=== PATIENT | male | born 1975 | race Caucasian/White ===

== ENCOUNTER 2021-05-25 01:20 | Inpatient (IN) | payer MEDICAID, SELFPAY ==
[~2021-05-25] VITALS: Ht 160 cm; Wt 68.5 kg
[2021-05-25 01:20] VITALS: BP_SYST 135
[~2021-05-25 01:20] MED LIST: ALBU2.5V7 INH; ALPR0.5T PO; EPIN0.3P3 IM; ESCI20TA PO; FAMO-132 PO; FLUT1BLS10; MONT-40 PO; PRED20TA PO; PROAIR
--- NOTE | 2021-05-25 01:20 | NUR ---
Patient to ER bed 3 to gown for evaluation. Side rails up.
--- NOTE | 2021-05-25 01:25 | NUR ---
ER Dr. Lopez at bedside examining patient.
[2021-05-25] MEDS ORDERED: ASPIRIN 325 MG TABLET PO ONE (01:30)
[2021-05-25] MEDS ORDERED: NITROGLYCERIN 0.4 MG TAB.SUBL SL ONE (01:30)
[2021-05-25] MEDS ORDERED: ASPIRIN 325 MG TABLET ONE (01:34)
--- NOTE | 2021-05-25 01:40 | NUR ---
PT RARIVED IN THE ER WITH COMPLAINTS OF CP. PT WAS PLAYING VIDEO GAMES AT AROUND 0015 TODAY AND STARTED EXPERIENCEING CP 12/17 RADIATING TO LEFT ARM AND SHUODLER AREA. PT WOKE UPFAMILY AND WAS BROUGHT HERE, STATES HE WAS HERE ABOUT A 1 WEEK AGO FOR A TIA AND WAS RECENTLY DISCHARGED. A&OX4.
--- NOTE | 2021-05-25 01:43 | NUR ---
XR AT BEDSIDE
--- NOTE | 2021-05-25 01:46 | NUR ---
PT GIVEN 2ND DOSE OF NITROGLYCERIN DUE TO CP STILL BEING 12/17
--- NOTE | 2021-05-25 02:14 | NUR ---
# 22 gauge angiocath placed to L HAND. Use of asceptic technique. Opsite placed over site. Blood return noted. Blood for lab drawn from site. Flushed with 10 cc of normal saline. No evidence of infiltration noted. Patient tolerated well.
[2021-05-25] MEDS ORDERED: IBUPROFEN 800 MG TABLET PO ONE (02:15)
[2021-05-25] MEDS ORDERED: PANTOPRAZOLE SODIUM 40 MG TAB PO ONE (02:15)
[2021-05-25 02:33] LABS: BASOPHILS # (AUTO) 0.1 K/uL (0.0-0.2); BASOPHILS % (AUTO) 0.4 % (0.0-2.0); EOSINOPHILS # (AUTO) 0.1 K/uL (0.0-0.4); EOSINOPHILS % (AUTO) 0.9 % (0.0-4.0); HEMATOCRIT 39.6 % (36-54); HEMOGLOBIN 13.3 g/dL (14.0-18.0); LYMPHOCYTES # (AUTO) 3.1 K/uL (1.0-5.5); LYMPHOCYTES % (AUTO) 22.9 % (20.5-51.5); MEAN CORPUSCULAR HEMOGLOBIN 30 pg (27-31); MEAN CORPUSCULAR HGB CONC 34 % (32-36); MEAN CORPUSCULAR VOLUME 89 fL (79.0-98.0); MONOCYTES # (AUTO) 1.2 K/uL (0.0-1.0); MONOCYTES % (AUTO) 9.1 % (1.7-9.3); NEUTROPHILS % (AUTO) 66.7 % (40.0-70.0); PLATELET COUNT (AUTO) 289 K/uL (130-430); RED BLOOD CELL COUNT(AUTO) 4.46 MIL/uL (4.2-6.2); RED CELL DISTRIBUTION WIDTH 13.8 % (9.0-15.0); WHITE BLOOD COUNT (AUTO) 13.5 K/uL (4.8-10.8)
[2021-05-25 03:15] LABS: ANION GAP 8 (5-15); CALCIUM 8.4 mg/dL (8.4-11.0); CHLORIDE 100 mmol/L (98-107); CREATININE 0.85 mg/dL (0.55-1.30); GLUCOSE 128 mg/dL (70-99); POTASSIUM 3.4 mmol/L (3.5-5.1); SODIUM SERUM 135 mmol/L (136-145); UREA NITROGEN, BLOOD 10 mg/dL (8-21)
[2021-05-25 03:24] LABS: ALANINE AMINOTRANSFERASE 44 U/L (12-78); ALBUMIN 3.4 g/dL (3.4-4.8); ASPARTATE AMINOTRANSFERASE 16 U/L (10-37); TOTAL BILIRUBIN 0.2 mg/dL (0.0-1.0)
[2021-05-25 03:29] LABS: GFR AFRICAN AMERICAN 127 mL/min (>90)
--- NOTE | 2021-05-25 03:40 | NUR ---
pt resting in bed awaiting update on transfer
[2021-05-25 04:33] LABS: BENZODIAZEPINE, URINE POSITIVE (NEG <=150); CANNABINOID, URINE POSITIVE (NEG <=50); METHAMPHETAMINES SCREEN,URINE POSITIVE (NEG <=500); URINE AMPHETAMINE POSITIVE (NEG <=500)
[2021-05-25 04:34] LABS: BARBITURATE, URINE NEGATIVE (NEG <=200); COCAINE, URINE NEGATIVE (NEG <=150); OPIATE, URINE NEGATIVE (NEG <=100); PHENCYCLIDINE SCREEN,URINE NEGATIVE (NEG <=25); UR TRICYCLIC ANTIDEPRESSANTS NEGATIVE (NEG <=300); URINE METHADONE NEGATIVE (NEG <=200); URINE OXYCODONE SCREEN NEGATIVE (NEG <=100); URINE PROPOXYPHENE SCREEN NEGATIVE (NEG <=300)
[2021-05-25 04:44] LABS: ALCOHOL, BLOOD < 3 mg/dL (<10)
[2021-05-25] MEDS ORDERED: ACETAMINOPHEN 500 MG TABLET ONE (05:13)
[2021-05-25] MEDS ORDERED: ACETAMINOPHEN 500 MG TABLET PO ONE (05:15)
[2021-05-25] MEDS ORDERED: DIPHENHYDRAMINE INJ 50 MG/ML VIAL IVP ONE (05:15)
--- NOTE | 2021-05-25 05:30 | NUR ---
Patient will be admitted to care of DR. HINOJOSA. Admitted to TELE unit. Will go to room TBD. Belongings list completed. Complete and up to date summary report printed. SBAR report to be given at bedside with opportunity for questions.
--- NOTE | 2021-05-25 05:42 | NUR ---
PT IS FULL CODE
[2021-05-25] MEDS ORDERED: ASA81 PO (05:46)
--- NOTE | 2021-05-25 05:57 | NUR ---
Medication reconciliation completed with information provided by PATIENT. Any prior medication reconciliation on file was reviewed and corrected.
--- NOTE | 2021-05-25 05:57 | NUR ---
BELONGINGS LIST DONE
[2021-05-25 06:11] VITALS: BP_SYST 154
--- NOTE | 2021-05-25 06:12 | NUR ---
Transfer to [facility] via ACLS protocol. Licensed nurse present. IV present no signs or symptoms of infiltration.
--- NOTE | 2021-05-25 08:00 | NUR ---
NOTES RECEIVED REPORT FROM RANDAL CAZARES. AAOX 4. HAS IV ACCESS ON THE LEFT HAND #22. PATENT/DRY/ SALINE LOCK. CALL LIGHTS WITHIN REACH. BED LOW POSITION, ALARMED AND LOCKED. AMBULATES TO THE BATHROOM. CONTINUE TO MONITOR
--- NOTE | 2021-05-25 09:00 | NUR ---
NO DUE MEDS GIVEN TO THE PATIENT.
[2021-05-25 10:46] VITALS: BP_SYST 108
[2021-05-25] MEDS: ACETAMINOPHEN 500 MG TABLET PO PRN ×3 (11:04→20:32)
--- NOTE | 2021-05-25 13:53 | NUR ---
DR HINOJOSA CAME AND EVALUATE THE PATIENT. NO TYLENOL YET. STILL COMPLAINING OF HEADACHE.
[2021-05-25] MEDS ORDERED: ALBUTEROL SULFATE 0.083% 2.5 MG/3 ML VIAL.NEB INH PRN (14:15)
[2021-05-25] MEDS ORDERED: FLUTICASONE 100 mCg/SALMETEROL 50 mCg DISKUS W.DEV INH SCH (14:15)
[2021-05-25 16:01] VITALS: BP_SYST 110
--- NOTE | 2021-05-25 16:15 | NUR ---
PHYSICAL ASSESSMENT DONE AND INVENTORY OF BELONGINGS DONE AT THIS TIME.
[2021-05-25] MEDS: ALPRAZolam 0.25 MG TABLET PO SCH ×2 (17:53→20:36)
[2021-05-25] MEDS ORDERED: MONTELUKAST 10 MG TABLET PO SCH (18:00)
[2021-05-25 20:00] VITALS: BP_SYST 108
[2021-05-25] MEDS: FAMOTIDINE 20 MG TABLET PO SCH (20:35)
[2021-05-25] MEDS ORDERED: ENOXAPARIN SODIUM 40 MG/0.4 ML SYRINGE SUBCUT SCH (21:00)
[2021-05-26] VITALS: BP_SYST 111
[2021-05-26] MEDS: ACETAMINOPHEN 500 MG TABLET PO PRN (06:08)
--- NOTE | 2021-05-26 07:37 | NUR ---
opening note report was endorsed by night nurse.patient is awake and alert laying in bed. no signs of any distress, breathing is equal and non labored. patient educated stone paver light for assistance. call light is with him. patient has no complaints at this time.
[2021-05-26 07:51] LABS: BASOPHILS # (AUTO) 0.1 K/uL (0.0-0.2); BASOPHILS % (AUTO) 0.5 % (0.0-2.0); EOSINOPHILS # (AUTO) 0.5 K/uL (0.0-0.4); EOSINOPHILS % (AUTO) 4.5 % (0.0-4.0); HEMATOCRIT 43.7 % (36-54); HEMOGLOBIN 14.5 g/dL (14.0-18.0); LYMPHOCYTES # (AUTO) 3.6 K/uL (1.0-5.5); MEAN CORPUSCULAR HEMOGLOBIN 30 pg (27-31); MEAN CORPUSCULAR HGB CONC 33 % (32-36); MEAN CORPUSCULAR VOLUME 90 fL (79.0-98.0); MONOCYTES # (AUTO) 0.8 K/uL (0.0-1.0); MONOCYTES % (AUTO) 7.3 % (1.7-9.3); NEUTROPHILS # (AUTO) 6.6 K/uL (1.8-7.7); NEUTROPHILS % (AUTO) 56.7 % (40.0-70.0); PLATELET COUNT (AUTO) 301 K/uL (130-430); RED BLOOD CELL COUNT(AUTO) 4.88 MIL/uL (4.2-6.2); RED CELL DISTRIBUTION WIDTH 14.3 % (9.0-15.0); WHITE BLOOD COUNT (AUTO) 11.6 K/uL (4.8-10.8)
[2021-05-26 07:59] LABS: CALCIUM 8.5 mg/dL (8.4-11.0); CREATININE 0.82 mg/dL (0.55-1.30); POTASSIUM 4.2 mmol/L (3.5-5.1)
[2021-05-26 08:00] VITALS: BP_SYST 128
[2021-05-26] MEDS: FAMOTIDINE 20 MG TABLET PO SCH (08:34)
[2021-05-26] MEDS: ALPRAZolam 0.25 MG TABLET PO SCH (08:34)
--- NOTE | 2021-05-26 08:40 | NUR ---
medication patients scheduled medication given per order. patient is awake and alert tolerated medication well. no complaints at this time. Dr. Marx at bed side. patient educated welder production line arc light, call light is with him. no other needs at this time.
[2021-05-26] MEDS ORDERED: ESCITALOPRAM OXALATE 10 MG TABLET PO SCH (09:00)
[2021-05-26] MEDS ORDERED: CITALOPRAM HYDROBROMIDE 20 MG TABLET PO SCH (09:00)
[2021-05-26] MEDS ORDERED: ASPIRIN 81 MG TAB.CHEW PO SCH (09:00)
--- NOTE | 2021-05-26 10:40 | NUR ---
rn rounding patient is awake and alert laying in bed. no complaints at this time. call light is with him educated to use for assistance. no other needs at this time.
[2021-05-26 12:47] VITALS: BP_SYST 119
--- NOTE | 2021-05-26 13:05 | NUR ---
paging patient is having a rash on chest, and face is itching. also would like to shower.
[2021-05-26] MEDS ORDERED: DIPHENHYDRAMINE HCL 12.5 MG/5 ML UDC PO ONE (13:30)
[2021-05-26 13:50] VITALS: BP_SYST 119
--- NOTE | 2021-05-26 17:54 | NUR ---
discharge patient discharged per order. patient is awake and alert no complaints at this time, iv catheter removed, catheter intact, applied guaze and tape at insertion site. patients id removed. patient educated on discharge paper work with no further questions. patient wheel out via wheel chair to car with spouse. no other needs . all belongings sent with patient.
== END 2021-05-26 14:15 | disposition home or self-care (01) | DRG 203 ==
LOC: SED 01:20 → STU 05:31
PROVIDERS: ADMIT Family Medicine; ATTEND Family Medicine
DX: M94.0 Chondrocostal junction syndrome [Tietze] (principal); G54.5 Neuralgic amyotrophy; I35.0 Nonrheumatic aortic (valve) stenosis; F12.20 Cannabis dependence, uncomplicated; Z20.822 Contact with and (suspected) exposure to COVID-19; F41.9 Anxiety disorder, unspecified; J45.909 Unspecified asthma, uncomplicated; Z88.5 Allergy status to narcotic agent; Z87.891 Personal history of nicotine dependence; Z91.018 Allergy to other foods; Z79.899 Other long term (current) drug therapy
CPT/HCPCS: 36415; 71045; 80048; 80053; 80307; 84484; 85025; 87081; 93005; 94640; 96374; 99285; G0378; G0482; J1200; J1650; J7613